=== PATIENT | male | born 1955 | race Caucasian/White ===

== ENCOUNTER → 2016-06-01 | Outpatient (CLI) | payer BC ==
[~2016-06-01] MED LIST: AMARYL 4MG. TAB4 MG PO; METFORMIN1000 MG PO; PRAVACHOL 20MG.20 MG PO
[2016-06-01 10:49] LABS: BUN 16 mg/dL (7-18)
[2016-06-01 10:53] LABS: GFR (ESTIMATED) 86 ML/MIN (>60)
== END ==
LOC: LAB 07:07
PROVIDERS: Family Medicine
DX: E11.9 Type 2 diabetes mellitus without complications (principal); E78.2 Mixed hyperlipidemia

== ENCOUNTER → 2017-03-24 | Outpatient (CLI) | payer BC ==
[2017-03-24 11:51] LABS: BUN 14 mg/dL (7-18); PROSTATE-SPECIFIC AG SCREEEN 0.5 ng/mL (0.0-4.0)
[2017-03-24 12:18] LABS: GFR (ESTIMATED) 86 ML/MIN (>60)
== END ==
LOC: LAB 08:37
PROVIDERS: Family Medicine
DX: E11.9 Type 2 diabetes mellitus without complications (principal); E78.2 Mixed hyperlipidemia
CPT/HCPCS: G0103